=== PATIENT | male | born 1955 | race Caucasian/White ===

== ENCOUNTER 2016-09-20 18:00 | Inpatient (IN) ==
[2016-09-20] MEDS ORDERED: Naloxone 0.4 MG/ML INJ IVP PRN (21:16)
[2016-09-20] MEDS ORDERED: D5% in Water 1,000 ML IVC PRN (21:21)
[2016-09-20] MEDS ORDERED: Dextrose Gel 15 GM PO PRN ×2 (21:21)
[2016-09-20] MEDS ORDERED: *HR* Dextrose 50 % in Water (Syg) 50 ML SYRINGE IVP PRN (21:21)
--- NOTE | 2016-09-20 21:23 | Internal Med History&Physical ---
<Ye Ac - Last Filed: 09/21/16 05:53> Date of Encounter: 09/21/16 Time of Encounter: 21:00 Assessment and Plan (1) Hyperglycemia Current visit: Yes Status: Acute -Given insulin drip in ED. BS currently 156. Has portable insulin pump. -Patient has daily peritoneal dialysis and his insulin dosage is very specific to his dialysis. -Anion Gap 15. -Because of BS complexity, will allow patient to manage own insulin at this time and continue to monitor insulin and make adjustments as needed (2) COPD (chronic obstructive pulmonary disease) Current visit: Yes Status: Acute -Will start home medication Qualifiers: COPD type: chronic bronchitis Chronic bronchitis type: unspecified Qualified Code(s): J42 - Unspecified chronic bronchitis (3) DVT prophylaxis Current visit: Yes Status: Acute -SQ heparin (4) ESRD (end stage renal disease) Current visit: Yes Status: Acute -Parental dialysis daily. -Nephrology consulted. It is okay for patient to do dialysis in the hospital with own equipment (5) Diabetes Current visit: Yes Status: Acute see above Qualifiers: Diabetes mellitus type: other specified (including STEPHEN) Diabetes mellitus complication status: with unspecified complications Diabetes mellitus continuous churn buttermaker insulin use: unspecified continuous churn buttermaker insulin use status Qualified Code(s): E13.8 - Other specified diabetes mellitus with unspecified complications (6) Hypertension Current visit: Yes Status: Acute -resume home meds Qualifiers: Hypertension type: unspecified secondary hypertension Qualified Code(s): I15.9 - Secondary hypertension, unspecified; I15 - Secondary hypertension (7) Pneumonia Current visit: Yes Status: Acute -Patient does not have fever, non productive cough no N/V, not tachy, lungs are relatively CTAB. -CXR at outside ED showed possible bilateral lower lobe pneumonia. Likely residual from previous pneumonia diagnosis 1 week ago. However, will continue treatment. Plan -Will continue rocephin 2g for 3 additional days so patient has a total of 8 days of treatment. Last dose in ED was roughly at 1600. Qualifiers: Pneumonia type: due to unspecified organism Laterality: bilateral Lung location: lower lobe of lung Qualified Code(s): J18.9 - Pneumonia, unspecified organism Internal Medicine - H&P: HPI Chief complaint: Hyperglycemia and Pneumonia Admitted From: Intrahospital Transfer Plans for Post Hospital Care: Home History of present illness: Mr. Bhagat is a 60 year old male, PMH peritoneal dialysis, DM, NM, COPD, admitted for hyperglycemia and pneumonia. Patient states that is blood surgar was running high this morning, around 500, and could not get the number down even with his insulin pump so he went to the ED. While in the ED, he received an insulin drip, CXR and doppler of his R leg. Concerning the hyperglycemia, patient BS now 150's. He was transferred Concerning pneumonia. Patient states for the past 3 weeks he has had a productive cough and noticed blood tinged sputum. Denies fever, nausea, vomiting. He finished a Z pack this morning day 5, which was given to him by his PCP. Patient states his cough is better today compared to last week. He denies CP, SOB. He is on home oxygen "when needed." transferred from [facility]. CXR showed possible bilateral pneumonia. Last admission to hospital was May 2016 for orthopedic procedure on R tib fib repair. Concerning doppler of R leg. Patient was noted to have increase size/edema when compared to L. Doppler ordered to r/o DVT. Doppler negative. Patient uses wheelchair to move, can ambulate once R tib/fib heals. Lives at home with his and receives home health 5 days a week for 2 hours. Past Med Surg Social Fam HX - Past Medical History Medical history: arthritis, COPD, coronary artery disease, diabetes, hyperlipidemia, hypertension, kidney stones, renal disease, thyroid disease, other Psychiatric history: no psych history - Past Surgical History Surgical History: orthopedic, other, other - Social History Smoking Status: Current every day smoker Packs per day: 1.5 Smokeless Tobacco Status: No Alcohol use: none Drug use: none - Additional Family History Additional family history: No family history Internal Medicine - H&P: Meds Amlodipine [Norvasc] 5 mg PO DAILY 03/14/15 [History] Atorvastatin [Lipitor] 40 mg PO HS 03/14/15 [History] Calcium Acetate [Phos-LO] 1,334 mg PO TIDWM 03/14/15 [History] Carvedilol 12.5 mg PO BID 03/14/15 [History] Cyclobenzaprine [Flexeril] 10 mg PO HS 03/14/15 [History] Esomeprazole Magnesium [Nexium] 40 mg PO DAILY 03/14/15 [History] HydrALAZINE 50 mg PO BID 03/14/15 [History] Insulin LISPRO [HumaLOG] 0 units SQ CONT PRN 03/14/15 [History] Minoxidil 2.5 mg PO DAILY 03/14/15 [History] Ondansetron ODT [Zofran ODT] 4 mg SL Q6HR PRN 03/14/15 [History] Temazepam [Restoril] 15 mg PO HS 03/14/15 [History] Gabapentin [Neurontin] 300 mg PO TID 03/13/16 [History] Clopidogrel [Plavix] 75 mg PO DAILY 09/20/16 [History] Lisinopril [Zestril] 5 mg PO DAILY 09/20/16 [History] TraMADol [Ultram] 50 mg PO TID PRN 09/20/16 [History] Umeclidinium [place] [Incruse Ellipta] 62.5 mcg IH DAILY 09/20/16 [History] Allergies No Known Allergies Allergy (Verified 02/16/16 10:35) All Systems PM: A 10-system review of systems was performed and is negative for pertinent findings except as documented above in the HPI. - Constitutional Constitutional: as per HPI - EENT Eyes: as per HPI - Cardiovascular Cardiovascular ROS IM: as per HPI - Respiratory Respiratory: as per HPI - Gastrointestinal Gastrointestinal: as per HPI - Neurological Neurological ROS: no confusion, no convulsions, no focal weakness, no numbness, no tingling, no tremor(s) - Constitutional Vitals: Temp Pulse Resp BP Pulse Ox 98.3 F 81 15 134/77 93 09/20/16 20:40 09/20/16 20:40 09/20/16 20:40 09/20/16 20:40 09/20/16 20:40 General appearance: Present: A&O X 3, no acute distress, answers questions appropriately - Head Head exam: Present: atraumatic, normocephalic - Neck Neck exam general surgery: Present: supple, trachea midline. Absent: lymphadenopathy - Respiratory Respiratory exam: Present: CTAB. Absent: respiratory distress, rhonchi, wheezes - Cardiovascular Cardiovascular exam: Present: RRR, +S1, +S2. Absent: diastolic murmur, gallop, rubs, systolic murmur - GI/Abdominal GI/Abdominal exam: Present: normal bowel sounds, soft, no peritoneal signs. Absent: distended, tenderness Additional comments: dialysis line secure and intact - Neurological Exam Neurological exam: Present: alert, oriented X3. Absent: facial droop, speech deficit - Psychiatric Psychiatric exam: Present: normal affect, normal mood - Other Additional findings: Bilateral lower edema, mild. R leg is larger compared to L. No increase in errythema or discoloration. Socks taken off and feet observed. no abnormality. Internal Med - H&P Results - Labs CBC & Chem 7: 09/21/16 03:28 09/21/16 03:28 <Brian Connor - Last Filed: 09/21/16 06:55> Date of Encounter: 09/20/16 Internal Medicine - H&P: HPI History of present illness: Mr. Bhagat is a 60 year old male Past Med Surg Social Fam HX - Additional Family History Additional family history: prior chart review reports positive family history of CAD and thyroid problems All Systems PM: A 10-system review of systems was performed and is negative for pertinent findings except as documented above in the HPI. - Constitutional Vitals: Temp Pulse Resp BP Pulse Ox 97.9 F 87 22 138/76 92 09/21/16 04:59 09/21/16 03:45 09/21/16 03:45 09/21/16 03:45 09/21/16 03:45 Internal Med - H&P Results - Labs CBC & Chem 7: 09/21/16 03:28 09/21/16 03:28 Labs: Short CBC 09/21/16 Range/Units 03:28 WBC 15.1 H (4.3-11.1) K/mcL Hgb 8.4 L (12.9-16.9) g/dL Hct 26.9 L (37.5-50.1) % Plt Count 218 (140-400) K/mcL Neutrophils # 11.6 H (1.6-8.9) K/mcL BMP 09/20/16 09/21/16 21:37 03:28 Sodium 136 134 L Potassium 5.9 H 5.2 H Chloride 100 96 L Carbon Dioxide 17 L 23 BUN 81 H 79 H Creatinine 11.46 H 11.34 H Glucose 154 H 353 H Calcium 9.1 8.9 - ABG Interpretation ABG results: 09/20/16 21:37 ABG pH 7.30 L ABG pCO2 48 H ABG pO2 58 L ABG HCO3 23.6 ABG Total CO2 25.1 ABG O2 Saturation 87 L ABG Base Excess -2.8 L - Attending Attestation I personally interviewed and examined this patient and my medical decision- making was reviewed with the Resident Physician. I agree with the documented findings, disposition and treatment plan as described except to the extent set forth below. Patient is a 60 year old male who looks older than his stated age with multiple co-morbidities including but not limited to insulin dependent diabetes mellitus/ COPD/HTN/ESRD on peritoneal dialysis who was transferred here from [facility] [place] for DKA and pneumonia. He had gone there with a blood glucose reading >600's whilst checking at home. He has an insulin pump and does nighty peritoneal dialysis so he is well versed in the management of his condition. At the facility he was diagnosed with DKA, glucose was in the mid 500's, his pH was around 7.2 with a bicarb of around 23. I believe his acidosis is being driven more from a renal source than ketoses related to his diabetes. In any case his random glucose when he got here was 156, with an improved acidosis. Due to the fine tuning of his glucose when on peritoneal dialysis patient felt more comfortable managing his insulin pump with assistance from us rather than stopping his insulin pump for us to take over his insulin management. He was however open to the idea of us taking over the management should his usual strategy fail. He is in the ICU as a 2N overflow and not as an ICU patient, therefore the hospitalist team will continue to follow his progress, nephrology has been consulted to weigh in.
[2016-09-20] MEDS ORDERED: Insulin DETEMIR 100 UNIT/ML X5UNITS SQ SCH (21:30)
[2016-09-20] MEDS ORDERED: Insulin LISPRO 300 UNITS/3 ML VIAL SQ SCH (21:30)
[2016-09-20 21:46] LABS: ABG Base Excess -2.8 mEq/L (-2.0 to 3.0); ABG HCO3 23.6 mEQ/L (21-27); ABG Oxygen Saturation 87 % (95-98); ABG PCO2 48 mmHg (35-45); ABG PO2 58 mmHg (85-104); ABG TCO2 25.1 mEq/L (20-26)
[2016-09-20 21:47] LABS: Blood Gas FiO2 28 %; Blood Gas Liter Flow 2 L/MIN
[2016-09-20 22:07] LABS: Calcium 9.1 mg/dL (8.6-10.8)
[2016-09-20] MEDS: Insulin LISPRO 300 UNITS/3 ML VIAL SQ SCH (22:10)
[2016-09-20 22:11] LABS: Potassium 5.9 mEq/L (3.5-4.5)
[2016-09-20] MEDS ORDERED: Ondansetron ODT 4 MG TAB.RAPDIS SL PRN (22:35)
[2016-09-20] MEDS ORDERED: Ipratropium/Albuterol Neb 3 ML IH PRN (22:53)
[2016-09-20] MEDS: *HR* Heparin 5,000 UNIT/ML VIAL SQ SCH (22:58)
[2016-09-20] MEDS: traMADol 50 MG TABLET PO PRN (22:58)
[2016-09-20] MEDS: Gentamicin Oint 15 GM TUBE TP SCH (23:03)
[2016-09-21 03:41] LABS: Basophils % 0.3 %; Eosinophils # 0.3 K/mcL (0.0-0.6); Eosinophils % 1.7 %; Hematocrit 26.9 % (37.5-50.1); Hemoglobin 8.4 g/dL (12.9-16.9); Immature Granulocytes % 0.6 % (0-4); Lymphocytes # 1.5 K/mcL (0.6-4.6); Lymphocytes % 9.9 %; Mean Corpuscular HGB Conc 31.2 g/dL (31.6-35.5); Mean Corpuscular Hemoglobin 31.3 pg (28.0-33.3); Mean Corpuscular Volume 100.4 fL (83.0-100.0); Mean Platelet Volume 9.6 fL (9.4-12.4); Monocytes # 1.7 K/mcL (0.0-1.3); Monocytes % 11.1 %; Neutrophils # 11.6 K/mcL (1.6-8.9); Platelet Count 218 K/mcL (140-400); Red Blood Count 2.68 M/mcL (4.19-5.50); Red Cell Distribution Width 15.3 % (11.5-14.5); Segmented Neutrophils % 76.4 %
[2016-09-21] MEDS ORDERED: *HR* OxyCODONE/APAP 5/325 TABLET PO ONE (03:44)
[2016-09-21 03:49] LABS: Hemoglobin A1C 7.1 %
[2016-09-21 03:53] LABS: Calcium 8.9 mg/dL (8.6-10.8); Phosphorous 8.7 mg/dL (2.3-4.7); Potassium 5.2 mEq/L (3.5-4.5)
[2016-09-21] MEDS: *HR* Heparin 5,000 UNIT/ML VIAL SQ SCH ×3 (06:11→23:24)
[2016-09-21] MEDS: GuaiFENesin Liq 200 MG/10 ML UDC PO PRN (06:11)
[2016-09-21] MEDS: Calcium Acetate 667 MG CAPSULE PO SCH ×3 (07:52→17:05)
[2016-09-21] MEDS: amLODIPine 5 MG TABLET PO SCH (07:52)
[2016-09-21] MEDS: hydrALAZINE 25 MG TABLET PO SCH ×2 (07:54→19:45)
[2016-09-21] MEDS: Insulin LISPRO 300 UNITS/3 ML VIAL SQ SCH ×5 (07:57→21:09)
[2016-09-21] MEDS ORDERED: Gabapentin 300 MG CAPSULE PO SCH (09:00)
[2016-09-21 09:14] LABS: Calcium 9.4 mg/dL (8.6-10.8); Potassium 4.9 mEq/L (3.5-4.5)
--- NOTE | 2016-09-21 11:23 | Internal Med Progress Note ---
Date of Encounter: 09/21/16 Time of Encounter: 11:23 - Assessment and plan (1) Pneumonia Current Visit: Yes Status: Acute Assessment and plan: CXR at outside ED showed possible bilateral lower lobe pneumonia. Likely residual from previous pneumonia diagnosis 1 week ago. Will continue treatment rocephin 2g for 3 additional days Qualifiers: Pneumonia type: due to unspecified organism Laterality: bilateral Lung location: lower lobe of lung Qualified Code(s): J18.9 - Pneumonia, unspecified organism (2) Hyperglycemia Current Visit: Yes Status: Acute Assessment and plan: Unknown etiology A1C 7.1 Possibly insulin pump dysfunction as patient again became hyperglycemic when insulin pump was turned on, neessitating using levemir and lispro Continue levemir and lispro-prandial and correctional Monitor FS q2h till stable ADA diet (3) COPD (chronic obstructive pulmonary disease) Current Visit: Yes Status: Chronic Assessment and plan: Chronic, stable not wheezing at time of exam No cough or SOB Qualifiers: COPD type: chronic bronchitis Chronic bronchitis type: unspecified Qualified Code(s): J42 - Unspecified chronic bronchitis (4) DVT prophylaxis Current Visit: Yes Status: Acute Assessment and plan: Heparin SQ (5) ESRD (end stage renal disease) Current Visit: Yes Status: Chronic Assessment and plan: Renal has been consulted Awaiting review (6) Diabetes Current Visit: Yes Status: Chronic Assessment and plan: A1C 7.2 Mgt as in hyperglycemia Patient is insulin dependent Qualifiers: Diabetes mellitus type: other specified (including STEPHEN) Diabetes mellitus complication status: with unspecified complications Diabetes mellitus manager terminal insulin use: unspecified manager terminal insulin use status Qualified Code(s): E13.8 - Other specified diabetes mellitus with unspecified complications (7) Hypertension Current Visit: Yes Status: Chronic Assessment and plan: Continue home meds Qualifiers: Hypertension type: essential hypertension Qualified Code(s): I10 - Essential (primary) hypertension - Subjective Interval history: Seen and evaluated at bedside 60 Y/O M, chronically ill-looking, looking much older than stated age ESRD on PD, IDDM on insulin pump, HTN, COPD, He is mostly wheel-chair bound and has daily home health He was being managed for pneumonia as Outside facility, and was transferred here for management of hyperglycemia and Pneumonia Seen at bedside , denies new complains FS have again become uncontrolled, patient reports this is unusual and he believes hid PD dialysate may not have bee accurate Insulin pump has been shut off after discussion with Amrik (as patient had only 4 units left and did not have device to refill) Meanwhile nephrology has been consulted to evaluate his PD He continues to have leukocytosis, antibiotics will be continued and resumed for management of pneumonia - Constitutional Vitals: Temp Pulse Resp BP Pulse Ox 97.8 F 89 20 132/80 95 09/21/16 07:44 09/21/16 10:40 09/21/16 10:40 09/21/16 10:40 09/21/16 10:40 General appearance: Present: A&O X 3, pleasant, no acute distress, answers questions appropriately - Head Head exam: Present: atraumatic, normocephalic - Eye Eye exam: Present: PERRL, conjuntiva pink, sclera anicteric Pupils: Present: PERRL - Neck Neck exam general surgery: Present: supple, trachea midline. Absent: lymphadenopathy - Respiratory Respiratory exam: Present: CTAB. Absent: accessory muscle use, rales, rhonchi, wheezes - Cardiovascular Cardiovascular exam: Present: RRR, +S1, +S2. Absent: diastolic murmur, gallop, rubs, systolic murmur - GI/Abdominal GI/Abdominal exam: Present: normal bowel sounds, soft, no peritoneal signs. Absent: distended, tenderness - Extremities Exam Extremities exam: Present: warm, radial pulses palpable and symetrical. Absent : calf tenderness, cyanotic, pedal edema - Neurological Exam Neurological exam: Present: alert, CN II-XII intact, oriented X3, no focal deficits. Absent: pronater drift, facial droop, speech deficit - Skin Skin exam: Present: dry, intact Internal Medicine: Result - Labs CBC & Chem 7: 09/21/16 03:28 09/21/16 08:48 Labs: Short CBC 09/21/16 Range/Units 03:28 WBC 15.1 H (4.3-11.1) K/mcL Hgb 8.4 L (12.9-16.9) g/dL Hct 26.9 L (37.5-50.1) % Plt Count 218 (140-400) K/mcL Neutrophils # 11.6 H (1.6-8.9) K/mcL BMP 09/20/16 09/21/1617 21:37 03:28 08:48 Sodium 136 134 L 133 L Potassium 5.9 H 5.2 H 4.9 H Chloride 100 96 L 93 L Carbon Dioxide 17 L 23 24 BUN 81 H 79 H 75 H Creatinine 11.46 H 11.34 H 11.01 H Glucose 154 H 353 H 545 H* Calcium 9.1 8.9 9.4 - ABG Interpretation ABG results: ABG ABG pH 7.30 pH Units (7.32-7.45) L 09/20/16 21:37 ABG pCO2 48 mmHg (35-45) H 09/20/16 21:37 ABG pO2 58 mmHg (85-104) L 09/20/16 21:37 ABG O2 Saturation 87 % (95-98) L 09/20/16 21:37 Consult Discharge Plan - Plan Referrals: Silviano Hawkins MD [Primary Care Provider] -
[2016-09-21] MEDS: Insulin DETEMIR 100 UNIT/ML X5UNITS SQ SCH ×2 (15:44→23:24)
--- NOTE | 2016-09-21 17:05 | Nephrology Consult Note ---
Date of Encounter: 09/21/16 Time of Encounter: 17:04 Assessment and Plan (1) ESRD (end stage renal disease) Current Visit: Yes Status: Chronic Will continue PD, which he brought in his home cycler and solutions. PD exit site appears stable. No signs of peritonitis. Continue home BP meds Will follow with you. Thank you. (2) Hyperglycemia Current Visit: Yes Status: Acute (3) Hypertension Current Visit: Yes Status: Chronic Qualifiers: Hypertension type: essential hypertension Qualified Code(s): I10 - Essential (primary) hypertension History of Present Illness - Reason for Consult Consult date: 09/20/16 end stage renal disease Requesting physician: Parish Shah - Chief Complaint Hyperglycemia; Hx of ESRD on PD - History of Present Illness The patient is a very pleasant 60-year-old gentleman with a past medical history of ESRD on peritoneal dialysis, hyperglycemia with long- standing diabetes, and et al who transferred from an outside hospital with findings suggestive of DKA. The patient was seen and examined in the ICU earlier today. He has been followed for peritoneal dialysis by my colleague Dr. Antony for many years. He brought in his home cycler that he uses at night: Uses 5 refills with typically 1.5 and/or 2.5% to control his volume status, he reported. He says that he feels better today; except for ongoing cough, fatigue , and the recent hyperglycemia. He said that he may be transferred out of the ICU soon. He did not affirm diarrhea, abdominal pain, fevers, cloudy PD fluid, or bloody PD fluid Past Med Surg Social Fam HX - Past Medical History Medical history: arthritis, COPD, coronary artery disease, diabetes, hyperlipidemia, hypertension, kidney stones, renal disease, thyroid disease, other Psychiatric history: no psych history - Past Surgical History Surgical History: orthopedic, other, other - Social History Smoking Status: Current every day smoker Packs per day: 1.5 Smokeless Tobacco Status: No Alcohol use: none Drug use: none Medications and Allergies Amlodipine [Norvasc] 5 mg PO DAILY 03/14/15 [History] Atorvastatin [Lipitor] 40 mg PO HS 03/14/15 [History] Calcium Acetate [Phos-LO] 1,334 mg PO TIDWM 03/14/15 [History] Carvedilol 12.5 mg PO BID 03/14/15 [History] Cyclobenzaprine [Flexeril] 10 mg PO HS 03/14/15 [History] Esomeprazole Magnesium [Nexium] 40 mg PO DAILY 03/14/15 [History] HydrALAZINE 50 mg PO BID 03/14/15 [History] Insulin LISPRO [HumaLOG] 0 units SQ CONT PRN 03/14/15 [History] Minoxidil 2.5 mg PO DAILY 03/14/15 [History] Ondansetron ODT [Zofran ODT] 4 mg SL Q6HR PRN 03/14/15 [History] Temazepam [Restoril] 15 mg PO HS 03/14/15 [History] Gabapentin [Neurontin] 300 mg PO TID 03/13/16 [History] Clopidogrel [Plavix] 75 mg PO DAILY 09/20/16 [History] Lisinopril [Zestril] 5 mg PO DAILY 09/20/16 [History] TraMADol [Ultram] 50 mg PO TID PRN 09/20/16 [History] Umeclidinium [place] [Incruse Ellipta] 62.5 mcg IH DAILY 09/20/16 [History] Allergies No Known Allergies Allergy (Verified 02/16/16 10:35) Review of Systems All Systems: reviewed and no additional remarkable complaints except as stated Exam - Vital Signs Vital signs: Initial Vital Signs Temp Pulse Resp BP Pulse Ox 98.3 F 81 15 134/77 93 09/20/16 20:40 09/20/16 20:40 09/20/16 20:40 09/20/16 20:40 09/20/16 20:40 Vital Signs - Last 8 Hours Temp Pulse Resp BP Pulse Ox 09/21/16 15:37 98.2 F 09/21/16 14:40 88 16 144/78 93 09/21/16 12:30 92 18 156/89 92 09/21/16 12:00 92 09/21/16 11:42 98.8 F 09/21/16 10:40 89 20 132/80 95 Intake and Output 09/21/16 09/21/16 09/21/16 07:59 15:59 23:59 Intake Total 500 / 500 340 / 340 Output Total 100 / 100 225 / 225 Balance 400 / 400 115 / 115 Intake: IV Fluids 100 / 100 Rocephin 2,000 MG In 100 / 100 Dextrose 5% (Minibag+) 100 ML 100 ML @ 200 mls/ hr IVPB Q24H [facility] Rx#: [id number] Oral 500 / 500 240 / 240 Output: Urine 100 / 100 225 / 225 Other: Meal Lunch Percent of Meal Consumed 100% Weight 76.43 kg Blood Glucose* 509 112 Patient Weight 09/21/16 23:59 Weight 76.43 kg - General Appearance General appearance: well-developed, well-nourished, fatigue, frail EENT: ATNC, PERRL, mucous membranes moist Neck: supple Respiratory: wheezing, course breath sounds Cardiology: edema (Right pretibial greater the left (chronic). ), normal S1, normal S2 - Dialysis Access Additional Comments: The PD catheter exit site was without any erythema, drainage, or tenderness to palpation. Gastrointestinal: normoactive bowel sounds, no tenderness, no guarding Integumentary: no rash, warm and dry, chronic venous stasis Neurologic: no focal deficit, no asterixis, alert and oriented x3 Musculoskeletal: no deformities, no erythema, no cyanosis Psychiatric: mood/affect appropriate, cooperative Results - Lab Results 09/21/16 03:28 09/21/16 08:48 Most recent lab results ABG pH 7.30 pH Units (7.32-7.45) L 09/20/16 21:37 ABG pCO2 48 mmHg (35-45) H 09/20/16 21:37 ABG pO2 58 mmHg (85-104) L 09/20/16 21:37 ABG HCO3 23.6 mEQ/L (21-27) 09/20/16 21:37 ABG O2 Saturation 87 % (95-98) L 09/20/16 21:37 Calcium 9.4 mg/dL (8.6-10.8) 09/21/16 08:48 Phosphorus 8.7 mg/dL (2.3-4.7) H 09/21/16 03:28 Magnesium 2.0 mg/dL (1.6-2.6) 09/21/16 03:28 I reviewed all the above auto generated date of sabillon; I reviewed his outside medical records from [facility], progress notes here at [place], labs, imaging, vitals and etc. Consult Discharge Plan - Plan Referrals: Silviano Hawkins MD [Primary Care Provider] -
[2016-09-21] MEDS: Gabapentin 300 MG CAPSULE PO SCH (19:45)
[2016-09-21] MEDS: Gentamicin Oint 15 GM TUBE TP SCH (19:45)
[2016-09-21] MEDS: traMADol 50 MG TABLET PO PRN (19:45)
[2016-09-22] MEDS: GuaiFENesin Liq 200 MG/10 ML UDC PO PRN (00:41)
[2016-09-22] MEDS: *HR* Heparin 5,000 UNIT/ML VIAL SQ SCH ×3 (05:44→21:54)
[2016-09-22 05:47] LABS: Calcium 9.4 mg/dL (8.6-10.8); Potassium 5.2 mEq/L (3.5-4.5)
[2016-09-22 06:01] LABS: Basophils % 0.3 %; Eosinophils # 0.1 K/mcL (0.0-0.6); Hematocrit 26.9 % (37.5-50.1); Hemoglobin 8.2 g/dL (12.9-16.9); Immature Granulocytes % 0.7 % (0-4); Lymphocytes # 1.2 K/mcL (0.6-4.6); Lymphocytes % 10.4 %; Mean Corpuscular HGB Conc 30.5 g/dL (31.6-35.5); Mean Corpuscular Hemoglobin 31.2 pg (28.0-33.3); Mean Corpuscular Volume 102.3 fL (83.0-100.0); Mean Platelet Volume 10.1 fL (9.4-12.4); Monocytes # 1.7 K/mcL (0.0-1.3); Monocytes % 14.8 %; Neutrophils # 8.2 K/mcL (1.6-8.9); Platelet Count 199 K/mcL (140-400); Red Blood Count 2.63 M/mcL (4.19-5.50); Red Cell Distribution Width 15.2 % (11.5-14.5); Segmented Neutrophils % 72.8 %
[2016-09-22] MEDS: Insulin LISPRO 300 UNITS/3 ML VIAL SQ SCH ×7 (08:18→21:55)
[2016-09-22] MEDS: Calcium Acetate 667 MG CAPSULE PO SCH ×3 (08:26→16:13)
[2016-09-22] MEDS: amLODIPine 5 MG TABLET PO SCH (08:27)
[2016-09-22] MEDS: hydrALAZINE 25 MG TABLET PO SCH ×2 (08:27→21:53)
[2016-09-22] MEDS: Insulin DETEMIR 100 UNIT/ML X5UNITS SQ SCH ×2 (08:28→21:53)
--- NOTE | 2016-09-22 11:19 | Nephrology Progress Note ---
Date of Encounter: 09/22/16 Time of Encounter: 11:17 - Assessment and Plan (1) ESRD (end stage renal disease) Current Visit: Yes Status: Chronic Patient states he is not draining much with his PD treatments. States last BM 3-4 days ago-constipation may cause draining issues. States he normally has a BM anywhere from daily to once a week. Recommend Miralax and stool softener May need to increase Dextrose to 2.5% or 4.25% Needs renal diet-ordered (2) Hyperkalemia Current Visit: Yes Status: Acute K+ 5.2 Placed on a renal diet (3) Diabetes Current Visit: Yes Status: Chronic per primary team Qualifiers: Diabetes mellitus type: other specified (including STEPHEN) Diabetes mellitus complication status: with kidney complications Diabetes mellitus complication detail: with chronic kidney disease Diabetes mellitus termite control service representative insulin use: unspecified termite control service representative insulin use status Chronic kidney disease stage: on chronic dialysis Qualified Code(s): 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; N18.6 - End stage renal disease Subjective Principal diagnosis: ESRD on dialysis, DKA, PNA Interval history: Patient seen and examined. Out of ICU and now on 2A. Feeling much better. Objective - Vital Signs Vital signs: Vital Signs Temp Pulse Resp BP Pulse Ox 09/22/16 10:57 98.2 F 80 13 138/78 90 09/22/16 08:00 83 09/22/16 07:40 97.8 F 09/22/16 06:00 83 12 121/60 85 09/22/16 04:03 98.2 F 09/22/16 04:00 84 20 127/65 85 09/22/16 02:00 85 17 124/67 92 09/22/16 00:17 99.9 F H 09/22/16 00:00 92 20 112/70 94 09/21/16 22:00 90 20 126/66 95 09/21/16 20:52 100.7 F H 09/21/16 20:00 93 09/21/16 19:56 93 20 139/74 92 09/21/16 16:40 94 20 148/84 91 09/21/16 16:30 94 09/21/16 15:37 98.2 F 09/21/16 14:40 88 16 144/78 93 09/21/16 12:30 92 18 156/89 92 09/21/16 12:00 92 09/21/16 11:42 98.8 F Intake and Output 09/21/16 09/22/16 09/22/16 23:59 07:59 15:59 Intake Total 440 / 440 350 / 350 120 / 120 Output Total 1363 / 1363 125 / 125 Balance -923 / -923 225 / 225 120 / 120 Intake: Oral 440 / 440 350 / 350 120 / 120 Output: Urine 75 / 75 125 / 125 Total Dialysis Output 1288 / 1288 Other: Meal Dinner Breakfast Percent of Meal Consumed 25% 100% Weight 80.4 kg Blood Glucose* 129 210 151 Patient Weight 09/22/16 23:59 Weight 80.4 kg - General Appearance General appearance: Present: chronically ill EENT: Present: ATNC, mucous membranes moist, hearing intact, vision intact Neck: Present: supple Respiratory: Present: clear Cardiology: Present: no edema, normal S1, normal S2 Gastrointestinal: Present: no tenderness, no guarding Integumentary: Present: warm and dry Neurologic: Present: alert and oriented x3 Musculoskeletal: Present: deformities (left hand, old injury) Psychiatric: Present: mood/affect appropriate, cooperative - Lab 09/22/16 05:01 09/22/16 05:01 Most recent lab results ABG pH 7.30 pH Units (7.32-7.45) L 09/20/16 21:37 ABG pCO2 48 mmHg (35-45) H 09/20/16 21:37 ABG pO2 58 mmHg (85-104) L 09/20/16 21:37 ABG HCO3 23.6 mEQ/L (21-27) 09/20/16 21:37 ABG O2 Saturation 87 % (95-98) L 09/20/16 21:37 Calcium 9.4 mg/dL (8.6-10.8) 09/22/16 05:01 Phosphorus 8.7 mg/dL (2.3-4.7) H 09/21/16 03:28 Magnesium 2.0 mg/dL (1.6-2.6) 09/21/16 03:28 Consult Discharge Plan - Plan Referrals: Silviano Hawkins MD [Primary Care Provider] -
--- NOTE | 2016-09-22 12:14 | Internal Med Progress Note ---
Date of Encounter: 09/22/16 Time of Encounter: 12:14 - Assessment and plan (1) Pneumonia Current Visit: Yes Status: Acute Assessment and plan: CXR at outside ED showed possible bilateral lower lobe pneumonia. Likely residual from previous pneumonia diagnosis 1 week ago. Will continue treatment rocephin 2g for 2 additional days Qualifiers: Pneumonia type: due to unspecified organism Laterality: bilateral Lung location: lower lobe of lung Qualified Code(s): J18.9 - Pneumonia, unspecified organism (2) Hyperglycemia Current Visit: Yes Status: Acute Assessment and plan: Unknown etiology A1C 7.1Improved Possibly insulin pump dysfunction as patient again became hyperglycemic when insulin pump was turned on, neessitating using levemir and lispro Continue levemir and lispro-prandial and correctional Monitor FS ACHS Will need insulin prescription upon discharge till review by PCP for insulin pump function eval ADA diet (3) COPD (chronic obstructive pulmonary disease) Current Visit: Yes Status: Chronic Assessment and plan: Chronic, stable not wheezing at time of exam No cough or SOB Qualifiers: COPD type: chronic bronchitis Chronic bronchitis type: unspecified Qualified Code(s): J42 - Unspecified chronic bronchitis (4) DVT prophylaxis Current Visit: Yes Status: Acute Assessment and plan: Heparin SQ (5) ESRD (end stage renal disease) Current Visit: Yes Status: Chronic Assessment and plan: Renal has been consulted Renal review appreciated Hyperkalemia today, BUN slightly increased and Cr unchanged (6) Diabetes Current Visit: Yes Status: Chronic Assessment and plan: A1C 7.2 Mgt as in hyperglycemia Patient is insulin dependent Qualifiers: Diabetes mellitus type: other specified (including STEPHEN) Diabetes mellitus complication status: with kidney complications Diabetes mellitus complication detail: with chronic kidney disease Diabetes mellitus terminal gauger supervisor insulin use: unspecified terminal gauger supervisor insulin use status Chronic kidney disease stage: on chronic dialysis Qualified Code(s): 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; N18.6 - End stage renal disease (7) Hypertension Current Visit: Yes Status: Chronic Assessment and plan: Continue home meds Qualifiers: Hypertension type: essential hypertension Qualified Code(s): I10 - Essential (primary) hypertension - Subjective Interval history: Seen and evaluated at bedside 60 Y/O M, chronically ill-looking, looking much older than stated age ESRD on PD, IDDM on insulin pump, HTN, COPD, He is mostly wheel-chair bound and has daily home health He was being managed for pneumonia as Outside facility, and was transferred here for management of hyperglycemia and Pneumonia Seen at bedside , denies new complains FS now controlled with hospital insulin, patient's insulin pump has been turned off Nephrology input appreciated, dialysate with less dextrose recommended Leukocytosis improving - Constitutional Vitals: Temp Pulse Resp BP Pulse Ox 98.2 F 80 13 138/78 90 09/22/16 10:57 09/22/16 10:57 09/22/16 10:57 09/22/16 10:57 09/22/16 10:57 General appearance: Present: A&O X 3, pleasant, no acute distress, answers questions appropriately - Head Head exam: Present: atraumatic, normocephalic - Eye Eye exam: Present: PERRL, conjuntiva pink, sclera anicteric Pupils: Present: PERRL - Neck Neck exam general surgery: Present: supple, trachea midline. Absent: lymphadenopathy - Respiratory Respiratory exam: Present: CTAB. Absent: accessory muscle use, rales, rhonchi, wheezes - Cardiovascular Cardiovascular exam: Present: RRR, +S1, +S2. Absent: diastolic murmur, gallop, rubs, systolic murmur - GI/Abdominal GI/Abdominal exam: Present: normal bowel sounds, soft, no peritoneal signs. Absent: distended, tenderness - Extremities Exam Extremities exam: Present: pedal edema (Non-pitin, R LE, chronic pr patient), warm, radial pulses palpable and symetrical. Absent: calf tenderness, cyanotic - Neurological Exam Neurological exam: Present: alert, CN II-XII intact, oriented X3, no focal deficits. Absent: pronater drift, facial droop, speech deficit - Skin Skin exam: Present: dry, intact Internal Medicine: Result - Labs CBC & Chem 7: 09/22/16 05:01 09/22/16 05:01 Labs: Short CBC 09/22/16 Range/Units 05:01 WBC 11.2 H (4.3-11.1) K/mcL Hgb 8.2 L (12.9-16.9) g/dL Hct 26.9 L (37.5-50.1) % Plt Count 199 (140-400) K/mcL Neutrophils # 8.2 (1.6-8.9) K/mcL BMP 09/22/16 05:01 Sodium 140 D Potassium 5.2 H Chloride 98 Carbon Dioxide 24 BUN 84 H Creatinine 11.12 H Glucose 214 H Calcium 9.4 - ABG Interpretation ABG results: ABG ABG pH 7.30 pH Units (7.32-7.45) L 09/20/16 21:37 ABG pCO2 48 mmHg (35-45) H 09/20/16 21:37 ABG pO2 58 mmHg (85-104) L 09/20/16 21:37 ABG O2 Saturation 87 % (95-98) L 09/20/16 21:37 Consult Discharge Plan - Plan Referrals: Silviano Hawkins MD [Primary Care Provider] -
[2016-09-22] MEDS: Gabapentin 300 MG CAPSULE PO SCH (21:54)
[2016-09-22] MEDS: Gentamicin Oint 15 GM TUBE TP SCH (21:55)
[2016-09-23] MEDS: traMADol 50 MG TABLET PO PRN (01:55)
[2016-09-23 06:32] LABS: Basophils % 0.2 %; Eosinophils # 0.1 K/mcL (0.0-0.6); Eosinophils % 1.4 %; Hematocrit 24.2 % (37.5-50.1); Hemoglobin 7.6 g/dL (12.9-16.9); Immature Granulocytes % 0.7 % (0-4); Lymphocytes # 1.1 K/mcL (0.6-4.6); Lymphocytes % 11.3 %; Mean Corpuscular HGB Conc 31.4 g/dL (31.6-35.5); Mean Corpuscular Hemoglobin 31.7 pg (28.0-33.3); Mean Corpuscular Volume 100.8 fL (83.0-100.0); Mean Platelet Volume 10.2 fL (9.4-12.4); Monocytes # 1.5 K/mcL (0.0-1.3); Monocytes % 15.9 %; Neutrophils # 6.7 K/mcL (1.6-8.9); Platelet Count 177 K/mcL (140-400); Red Cell Distribution Width 14.9 % (11.5-14.5); Segmented Neutrophils % 70.5 %
[2016-09-23 07:03] LABS: Calcium 9.3 mg/dL (8.6-10.8); Potassium 4.5 mEq/L (3.5-4.5)
[2016-09-23] MEDS: *HR* Heparin 5,000 UNIT/ML VIAL SQ SCH ×2 (07:22→13:23)
[2016-09-23] MEDS ORDERED: Insulin LISPRO 300 UNITS/3 ML VIAL SQ SCH ×2 (09:05→21:00)
[2016-09-23] MEDS: amLODIPine 5 MG TABLET PO SCH (09:21)
[2016-09-23] MEDS: hydrALAZINE 25 MG TABLET PO SCH (09:22)
[2016-09-23] MEDS: Insulin DETEMIR 100 UNIT/ML X5UNITS SQ SCH (09:22)
[2016-09-23] MEDS: Insulin LISPRO 300 UNITS/3 ML VIAL SQ SCH ×2 (09:22→13:24)
[2016-09-23] MEDS: Calcium Acetate 667 MG CAPSULE PO SCH ×2 (09:24→12:29)
[2016-09-23 11:00] VITALS: BP 151/80
--- NOTE | 2016-09-23 12:53 | Discharge Summary ---
Date of Encounter: 09/23/16 Time of Encounter: 12:49 - Discharge Diagnosis (1) Pneumonia Priority: Primary Status: Acute Qualifiers: Pneumonia type: due to unspecified organism Laterality: bilateral Lung location: lower lobe of lung Qualified Code(s): J18.9 - Pneumonia, unspecified organism (2) Hyperglycemia Priority: Secondary Status: Acute (3) COPD (chronic obstructive pulmonary disease) Priority: Secondary Status: Chronic Qualifiers: COPD type: chronic bronchitis Chronic bronchitis type: unspecified Qualified Code(s): J42 - Unspecified chronic bronchitis (4) DVT prophylaxis Priority: Secondary Status: Acute (5) ESRD (end stage renal disease) Priority: Secondary Status: Chronic (6) Diabetes Priority: Secondary Status: Chronic Qualifiers: Diabetes mellitus type: other specified (including STEPHEN) Diabetes mellitus complication status: with kidney complications Diabetes mellitus complication detail: with chronic kidney disease Diabetes mellitus fpc insulin use: unspecified termination clerk insulin use status Chronic kidney disease stage: on chronic dialysis Qualified Code(s): 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; N18.6 - End stage renal disease (7) Hypertension Priority: Secondary Status: Chronic Qualifiers: Hypertension type: essential hypertension Qualified Code(s): I10 - Essential (primary) hypertension - Discharge Medications Prescriptions: Cefdinir [Omnicef] 300 mg PO BID #8 capsule Insulin ASPART [Novolog Flexpen] 6 unit SQ TIDAC #3 insuln.pen Insulin DETEMIR [Levemir Flextouch] 5 unit SQ BID #3 insuln.pen Home Medications: Amlodipine [Norvasc] 5 mg PO DAILY 03/14/15 [History] Atorvastatin [Lipitor] 40 mg PO HS 03/14/15 [History] Calcium Acetate [Phos-LO] 1,334 mg PO TIDWM 03/14/15 [History] Carvedilol 12.5 mg PO BID 03/14/15 [History] Cyclobenzaprine [Flexeril] 10 mg PO HS 03/14/15 [History] Esomeprazole Magnesium [Nexium] 40 mg PO DAILY 03/14/15 [History] HydrALAZINE 50 mg PO BID 03/14/15 [History] Insulin LISPRO [HumaLOG] 0 units SQ CONT PRN 03/14/15 [History] Minoxidil 2.5 mg PO DAILY 03/14/15 [History] Ondansetron ODT [Zofran ODT] 4 mg SL Q6HR PRN 03/14/15 [History] Temazepam [Restoril] 15 mg PO HS 03/14/15 [History] Gabapentin [Neurontin] 300 mg PO TID 03/13/16 [History] Clopidogrel [Plavix] 75 mg PO DAILY 09/20/16 [History] Lisinopril [Zestril] 5 mg PO DAILY 09/20/16 [History] TraMADol [Ultram] 50 mg PO TID PRN 09/20/16 [History] Umeclidinium [place] [Incruse Ellipta] 62.5 mcg IH DAILY 09/20/16 [History] Cefdinir [Omnicef] 300 mg PO BID #8 capsule 09/23/16 [Rx] Insulin ASPART [Novolog Flexpen] 6 unit SQ TIDAC #3 insuln.pen 09/23/16 [Rx] Insulin DETEMIR [Levemir Flextouch] 5 unit SQ BID #3 insuln.pen 09/23/16 [Rx] Allergies/Adverse Reactions: Allergies No Known Allergies Allergy (Verified 02/16/16 10:35) Date of admission: 09/20/16 20:30 Primary care physician: Silviano Hernandez Consults: 09/20/16 21:15 Consult to [facility] [CONS] Routine Reason for SW Consult: Discharge planning, utilizes home health 09/21/16 09:00 Consult to Nephrology [CONS] Routine Consulting Provider: Kidney Mora/DAPHNE/NOEL/GERALDINE Reason for Consult: Peritoneal dialysis. Electrolyte abnormalities. Call Completed: Yes Discharging clinician: Daysi Walters Anticipated date of discharge: 09/23/16 - Patient Status Disposition: Home Health Service Condition: Good Functional capacity at discharge: uses cane/walker Overall status at discharge: patient is back to baseline - Discharge Instructions Follow Up With: Silviano Hawkins MD [Primary Care Provider] - Additional Instructions: Please follow up with your primary care physician within 3-5 days after your discharge from the hospital. Due to your malfunctioning insulin pump, you have been started on Levemir and Novolog insulin therapy. Please use this insulin therapy as prescribed. Please closely monitor your fingerstick glucose and seek medical help if you have persistent hyperglycemia. Please continue oral antibiotics for four more days. (omnicef 300mg twice a day) . please resume all other home medications as prescribed by your primary care physician. - Diet and Activity Activity: as per physical therapy, wear oxygen at all times Diet: diabetic diet Hospital course: Mr. Bhagat is a 60 year old male with past medical history of end-stage renal disease on peritoneal dialysis, diabetes, [place], COPD on home oxygen admitted for hyperglycemia and pneumonia. Patient was started on empiric IV antibiotics and insulin therapy. Patient is noted to be on insulin pump at home however had persistent hyperglycemia despite using the pump. After further evaluation it was noted that patient's insulin pump was not functioning appropriately and will need a new insulin pump after discharge. Patient is to follow up with his PCP for a new insulin pump but will be discharged on long-acting insulin and Humalog. At this time patient is hemodynamically stable, saturating well on nasal cannula, and is stable for discharge. He will be discharged to home with follow-up with primary care physician. He is to be discharged with oral antibiotics and insulin therapy. Patient demonstrates understanding of his diagnosis and agrees with the discharge care plan. Patient reported of using home oxygen on as needed basis at home, however is noted to be hypoxic without oxygen support due to which he will be continued on continuous home oxygen after discharge. fabric worker leader consulted for arrangement of home oxygen. - Time Spent with Patient Total time spent providing and/or coordinating discharge services: Less than 30 minutes - Constitutional Vitals: Temp Pulse Resp BP Pulse Ox 98.3 F 84 16 151/80 98 09/23/16 10:59 09/23/16 10:59 09/23/16 10:59 09/23/16 10:59 09/23/16 12:14 General appearance: Present: A&O X 3, pleasant, no acute distress, answers questions appropriately - Head Head exam: Present: atraumatic, normocephalic - Eye Eye exam: Present: normal appearance, conjuntiva pink, sclera anicteric - Respiratory Respiratory exam: Present: CTAB. Absent: accessory muscle use, rales, rhonchi, wheezes - Cardiovascular Cardiovascular exam: Present: RRR, +S1, +S2. Absent: diastolic murmur, gallop, rubs, systolic murmur - GI/Abdominal GI/Abdominal exam: Present: normal bowel sounds, soft, no peritoneal signs. Absent: distended, tenderness - Extremities Exam Extremities exam: Present: warm, radial pulses palpable and symetrical. Absent : calf tenderness - Neurological Exam Neurological exam: Present: alert, oriented X3 - Psychiatric Psychiatric exam: Present: normal affect, normal mood
--- NOTE | 2016-09-23 13:11 | Physician Discharge Referral ---
Home Health/Hosp Referral Info Transfer to: Home Health Provider in Charge Post Discharge: PCP - Diagnosis (1) Pneumonia Priority: Primary Status: Acute (2) Hyperglycemia Priority: Primary Status: Acute (3) COPD (chronic obstructive pulmonary disease) Priority: Secondary Status: Chronic (4) DVT prophylaxis Priority: Secondary Status: Acute (5) ESRD (end stage renal disease) Priority: Secondary Status: Chronic (6) Diabetes Priority: Secondary Status: Chronic (7) Hypertension Priority: Secondary Status: Chronic - Respiratory Orders Oxygen / L per min (3L/Day) Smoking Cessation: Smoking cessation has been advised. For more information, call the [place] Tobacco Quit Line at 1-519-SPGR-NOW. - Services Needed Following services are medically necessary services: Nursing, Home Health Aide, Physical Therapy, Occupational Therapy - Transfer Medications Prescriptions: Cefdinir [Omnicef] 300 mg PO BID #8 capsule Insulin ASPART [Novolog Flexpen] 6 unit SQ TIDAC #3 insuln.pen Insulin DETEMIR [Levemir Flextouch] 5 unit SQ BID #3 insuln.pen Home Medications: Amlodipine [Norvasc] 5 mg PO DAILY 03/14/15 [History] Atorvastatin [Lipitor] 40 mg PO HS 03/14/15 [History] Calcium Acetate [Phos-LO] 1,334 mg PO TIDWM 03/14/15 [History] Carvedilol 12.5 mg PO BID 03/14/15 [History] Cyclobenzaprine [Flexeril] 10 mg PO HS 03/14/15 [History] Esomeprazole Magnesium [Nexium] 40 mg PO DAILY 03/14/15 [History] HydrALAZINE 50 mg PO BID 03/14/15 [History] Insulin LISPRO [HumaLOG] 0 units SQ CONT PRN 03/14/15 [History] Minoxidil 2.5 mg PO DAILY 03/14/15 [History] Ondansetron ODT [Zofran ODT] 4 mg SL Q6HR PRN 03/14/15 [History] Temazepam [Restoril] 15 mg PO HS 03/14/15 [History] Gabapentin [Neurontin] 300 mg PO TID 03/13/16 [History] Clopidogrel [Plavix] 75 mg PO DAILY 09/20/16 [History] Lisinopril [Zestril] 5 mg PO DAILY 09/20/16 [History] TraMADol [Ultram] 50 mg PO TID PRN 09/20/16 [History] Umeclidinium [place] [Incruse Ellipta] 62.5 mcg IH DAILY 09/20/16 [History] Cefdinir [Omnicef] 300 mg PO BID #8 capsule 09/23/16 [Rx] Insulin ASPART [Novolog Flexpen] 6 unit SQ TIDAC #3 insuln.pen 09/23/16 [Rx] Insulin DETEMIR [Levemir Flextouch] 5 unit SQ BID #3 insuln.pen 09/23/16 [Rx] Allergies/Adverse Reactions: Allergies No Known Allergies Allergy (Verified 02/16/16 10:35) Certification: Further, I certify that my clinical findings support that this patient is homebound (i.e. absences from home require considerable and taxing effort and are for medical reasons or jain services or infrequently or short duration when for other reasons) because: Homebound Reason: Patient requires assistance of a person or device to safely leave home Attestation: My signature below is to certify that this patient is under my care and that I, or nurse practitioner, or a physician's dental laboratory assistant working with me, has a face-to -face encounter with this patient.
[2016-09-23] MEDS ORDERED: Ipratropium/Albuterol Neb 3 ML IH SCH (16:00)
== END 2016-09-23 16:54 | disposition home health service (06) | DRG 637 ==
LOC: ICNU 20:30 → 2ANU 09-22 10:14
PROVIDERS: ADMIT Family Medicine; ATTEND Family Medicine